=== PATIENT | male | born 1960 | race Caucasian/White ===

== ENCOUNTER 2019-04-18 10:56 | Emergency (ER) | payer OTHER ==
[~2019-04-18] VITALS: Ht 177.8 cm; Wt 90.4 kg
[2019-04-18 11:10] VITALS: BP 164/83
== END 2019-04-18 12:20 | disposition home or self-care (01) ==
LOC: ER 10:57
DX: I10 Essential (primary) hypertension (principal); R42 Dizziness and giddiness; Z98.890 Other specified postprocedural states
CPT/HCPCS: 93005; 99283